=== PATIENT | female | born 1995 | race Caucasian/White ===

== ENCOUNTER 2025-04-04 10:11 | Emergency (ER) | payer OTHER, SELFPAY ==
[2025-04-04 10:16] VITALS: BP 103/64; PULSE 103; TEMP 36.9; O2SAT 95; BMI 55.8
--- OUTSIDE RECORDS SUMMARY | 2025-04-04 10:40 | XMS_ITS | Clinical Summary ---
Author Organization [facility] Address [address] [place] [address] Care Team Providers Care Nutritionist Name Role Phone Prashant Zimmerman DO Primary Care Provider Allergies Active AllergyReactionsCriticalityNoted DateCommentsChamomileHives,SwellingHigh 06/04/2023 Swelling of throat Iodinated Contrast MediaSwelling,Rash,PizulPkdh00/15/2015 Swelling of Lip/Tongue/Throat NouedaytbupebdpiYirmIxyh79/23/1131CsnfivwgtfnAlkaOjt24/01/2024Polyethylene Glycol (Macrogol)Swelling,GI hnvgkmnkxlcTssd61/13/2023 throat swelling Shellfish Protein-Containing Drug IyidofcwYycdaqjawizNnpg44/23/2014 Medications MedicationSigDispense QuantityRefillsLast FilledStart DateEnd DateStatus QUEtiapine (SEROquel) 50 MG tablet Active hydrOXYzine HCl (Atarax) 10 MG tablet Take 10 mg by mouth Daily as needed for anxiety.02/03/2023ctive cetirizine (ZyrTEC) 10 MG tablet 06/01/2023ctive fluticasone (Cutivate) 0.05 % cream APPLY CREAM TOPICALLY TO AFFECTED AREA TWICE DAILY04/07/2023ctive Ativan 1 MG tablet Take 1 mg by mouth04/17/2023ctive Naproxen Sodium (Aleve) 220 MG capsule Take 1 capsule as needed by oral route.Active paliperidone (Invega) 9 MG 24 hr tablet Take 9 mg by mouth at aqjblez7605/18/2023ctive sertraline (Zoloft) 50 MG tablet Take 50 mg by mouth Daily08/18/2023ctive busPIRone (Buspar) 10 MG tablet Take 10 mg by mouth in the morning and 10 mg before bedtime.08/18/2023ctive bacitracin 500 UNIT/GM ointment 10/08/2023ctive omeprazole (PriLOSEC) [address] capsule Daily09/21/2023ctive triamcinolone (Kenalog) 0.1 % ointment APPLY OINTMENT TOPICALLY TO AFFECTED AREA ONCE DAILY FOR 14 DAYS11/25/2023ctive triamcinolone (Kenalog) 0.1 % cream Indications:ScabiesApply to affected areas, up to twice a day when flared, do not use one the face, groin, or underarms, 30 day supply 454 g ctive Active Problems No known active problems Resolved Problems ProblemNoted DateDiagnosed DateResolved DateB12 brfxbgwadg37 Cervical muscle ugzsvi73ontusion Coordination of complex careEasy /10/2024 10/12/2023Iron deficiency burath38Mass of soft tissue of face Morbid obesity with BMI of 50.0-59.9, adult10/12/2023 10/12/2023Obesity (BMI 35.0-39.9 without comorbidity)arotid massecurrent major depressive Seizure-like mxjirloy22Severe major depression with psychotic mcsgypmg15DHD (attention deficit hyperactivity disorder) nxietyutoimmune gdhuqld7809/09/2023 09/09/2023ipolar 2 rqqasgwt55holelithiasis09/09/2023 09/09/20233482Ltpkgohxgv68hronic ukpouptufar61 Cevuqmjkhxba04History of suicide qgoiirh67 Overview (09/09/2023): history of suicide attempt at age 15 Hodgkin otpgdojy11S/P chemotherapy, time since 4-12 weeks S/P radiation > 12 weeksSensorineural hearing loss (SNHL) of both earsTonsillar hypertrophy MigraineSyncope Immunizations ImmunizationAdministration DatesNext DueInfluenza, injectable, quadrivalent 04/18/2016Influenza, seasonal, gcrljtljqi83/29/2018Meningococcal CCA1L2212/21/2015 Tdap09/01/2020 Family History Medical HistoryRelationNameCommentsCancerFatherRobert HemingwayDiabetesFather Syd HemingwayHeart diseaseFatherRobert HemingwayMelanomaFatherRobert HemingwayMental illnessFatherRobert HemingwayStrokeFatherRobert Radha DiabetesMaternal GrandfatherRobert WaltonHeart diseaseMaternal GrandfatherRobert WaltonStrokeMaternal GrandfatherRobert WaltonHeart diseaseMaternal Grandmother CancerMotherShirley HemingwayDiabetesMotherShirley HemingwayHeart diseaseMother Arabella HemingwayMental illnessMotherShirley HemingwayCancerPaternal Grandmother Conrad knappsiDiabetesPaternal GrandmotherJean lemanksiHeart diseasePaternal GrandmotherJean lemanksiMental illnessPaternal GrandmotherJean lemanksiStroke Paternal GrandmotherJean lemanksiMental illnessSiblingRelationNameStatusComments FatherRobert HemingwayAliveMaternal GrandfatherRobert WaltonDeceasedMaternal GrandmotherDeceasedMotherShirley HemingwayAlivePaternal GrandfatherAlivePaternal GrandmotherJean lemanksiDeceasedSiblingAliveSonAlive Social History Tobacco UseTypesPacks/DayYears UsedDateSmoking Tobacco: Some DaysCigarettes0.3 3.6Started: 4Passive Smoke Exposure: PastSmokeless Tobacco: Never Tobacco Cessation:Ready to Q uit: Not Asked Alcohol UseStandard Drinks/WeekCommentsNot Currently0 (1 standard drink = 0.6 oz pure alcohol)CommentsUnknownSex and Gender InformationValueDate Recorded Sex Assigned at BirthNot on fileLegal BlpQqjgnk80/15/2023 7:30 PM EDTGender IdentityNot on fileSexual OrientationNot on file Last Filed Vital Signs Vital SignReadingTime TakenCommentsBlood Nmwwdmvk458/77005/05/2023 11:56 AM EST Jwqvi7532/02/2024 11:56 AM ESTTemperature--Respiratory Rate--Oxygen Saturation-- Inhaled Oxygen Concentration--Uyoysf859 kg (279 lb)11/02/2023 1:19 PM EDTHeight 157.5 cm (5' 2 )11/02/2023 1:19 PM EDTBody Mass Index51.0307 1:19 PM EDT Plan of Treatment Not on file Insurance Care Teams Team MemberRelationshipSpecialtyStart DateEnd Date Prashant Zimmerman DO PCP - GeneralFamily Tusrlasm91/13/23
--- NOTE | 2025-04-04 10:42 | XR_ITS ---
The [address] [address] Patient Name: BRIGHT ZHOU MRN: [id number] date: 1995 Sex: F Assigned Patient Location: ED.MAIN Current Patient Location: ED.MAIN Accession/Order Number: [id number] Exam Date: 04/04/2025 10:35 Report Date: 04/04/2025 10:57 At the request of: MICHAELLE LOZANO MD Procedure: XR hand LT min 3V LEFT HAND - 3 views COMPARISON: None CLINICAL DATA: Patient jammed third finger on car seat a couple days ago and the same finger was also stepped on today. Pain and stiffness. AP, lateral and oblique views were obtained. There is minor irregularity/subtle lucency at the volar base of the middle phalanx of the third finger on the lateral view. This might be old, however focal clinical correlation is suggested to determine if this could be a nondisplaced fracture related to the recent injuries. There is no additional suspected acute fracture or dislocation. There is mild soft tissue swelling at the proximal second through fourth fingers, greatest at the third . XR/XR hand LT min 3V IMPRESSION: FOCAL CLINICAL CORRELATION IS SUGGESTED AT THE LEFT BASE OF THE MIDDLE PHALANX OF THE THIRD FINGER, DISCUSSED ABOVE. NO ADDITIONAL ACUTE FINDINGS. Impression dictated by: Iveth Dominguez M.D. 04/04/2025 10:57 AM Dictation Location: [place] [address] Electronically authenticated by: [id number] Y Date: 04/04/2025 10:57
--- NOTE | 2025-04-04 10:48 | ED.GENADUL1 ---
HPI HPI - General Adult General Chief complaint: Extremity Injury, Upper Stated complaint: LMF PAIN & SWELLING Time Seen by Provider: 04/04/25 10:30 Source: patient Mode of arrival: walk-in Limitations: no limitations History of Present Illness HPI narrative: 29-year-old female presents for pain to her left middle finger. She had hit it on a car seat a few days ago and complains of pain at the PIP. Other fingers are unaffected. She is right-handed. Related Data Home Medications ?Medication ?Instructions ?Recorded ?Confirmed buspirone 10 mg capsule 10 mg PO BID 04/04/25 04/04/25 omeprazole 20 mg capsule,delayed 20 mg PO DAILY 04/04/25 04/04/25 release paliperidone 6 mg tablet,extended 12 mg PO DAILY 04/04/25 04/04/25 release 24 hr (Invega) sertraline 25 mg tablet 25 mg PO DAILY 04/04/25 04/04/25 trazodone 100 mg tablet 50 mg PO DAILY 04/04/25 04/04/25 trospium 60 mg capsule,extended 60 mg PO DAILY 04/04/25 04/04/25 release 24 hr Previous Rx's ?Medication ?Instructions ?Recorded ibuprofen 800 mg tablet 800 mg PO Q8H PRN pain #20 tabs 04/04/25 Allergies Allergy/AdvReac Type Severity Reaction Status Date / Time Iodinated Contrast Media Allergy Severe hives Verified 04/04/25 10:24 polyethylene glycol 3350 AdvReac Intermediate Vomiting Verified 04/04/25 10:24 (From Miralax) Opioid HPI Opioid Management Most Recent Opioid Data: Last Pain Scale 7 Today, 10:16 Review of Systems ROS Narrative A ten point review of systems is negative except as noted above. PFSH PFSH Social History Little interest or pleasure in doing things: not at all Feeling down, depressed, or hopeless: not at all Exam Narrative Exam Narrative: Nurses note and vital signs reviewed General:The patient appears well and in no apparent distress.Patient is resting comfortably on cart. Skin:Warm, dry, no pallor noted.There is no rash noted. Head:Normocephalic, atraumatic Eye: Normal conjunctiva, no drainage Ears, Nose, Mouth, and Throat: oral mucosa is moist. Nares patent. Cardiovascular:Regular Rate and Rhythm Respiratory:Patient is in no distress, no accessory muscle use, lungs are clear to auscultation, no wheezing, rales or rhonchi GI: Soft and nontender Musculoskeletal: The left hand is examined. There is some tenderness and swelling at the left middle finger PIP. It has good range of motion. Other fingers are unaffected and have full range of motion and no tenderness. Neurological:A&O, normal speech Psychiatric:Cooperative Constitutional Vital Signs, click to edit/add: Last Vital Signs Temp 98.5 F 04/04/25 10:16 Pulse 103 H 04/04/25 10:16 Resp 20 04/04/25 10:16 BP 103/64 04/04/25 10:16 Pulse Ox 95 04/04/25 10:16 O2 Del Method Room Air 04/04/25 10:16 Course Vital Signs Vital signs: Vital Signs Temperature 98.5 F 04/04/25 10:16 Pulse Rate 103 H 04/04/25 10:16 Respiratory Rate 20 04/04/25 10:16 Blood Pressure 103/64 04/04/25 10:16 Pulse Oximetry 95 04/04/25 10:16 Oxygen Delivery Method Room Air 04/04/25 10:16 Temperature 98.5 F 04/04/25 10:16 Pulse Rate 103 H 04/04/25 10:16 Respiratory Rate 20 04/04/25 10:16 Blood Pressure 103/64 04/04/25 10:16 Pulse Oximetry 95 04/04/25 10:16 Oxygen Delivery Method Room Air 04/04/25 10:16 Medical Decision Making MDM Narrative Medical decision making narrative: X-ray of the finger per radiologist shows a questionable lucency. The patient does recall breaking her finger there when she was a child. This likely is an old finding. Splint applied, application checked by me and found to be appropriate, she is neurovascular intact. She was informed that this finding on the x-ray is most likely an old fracture but she will follow-up with orthopedics to ensure appropriate healing. Treatment diagnosis and follow-up were discussed with the patient. Differential Diagnosis Differential Diagnosis: Fracture, sprain Imaging Data Hand x-ray: Radiologist's impression: ITS Impressions Hand X-Ray 04/04/25 10:42 IMPRESSION: FOCAL CLINICAL CORRELATION IS SUGGESTED AT THE LEFT BASE OF THE MIDDLE PHALANX OF THE THIRD FINGER, DISCUSSED ABOVE. NO ADDITIONAL ACUTE FINDINGS. Impression dictated by: Iveth Dominguez M.D. 04/04/2025 10:57 AM Dictation Location: [place] [id number] Electronically authenticated by: [id number] Y Date: 04/04/2025 10:57 Discharge Plan Discharge Chief Complaint: Extremity Injury, Upper Clinical Impression: Finger pain Patient Disposition: Home, Self-Care Time of Disposition Decision: 11:08 Condition: Good Mode of Transportation: Private Vehicle Prescriptions / Home Meds: New ibuprofen 800 mg tablet 800 mg PO Q8H PRN (Reason: pain) Qty: 20 0RF No Action paliperidone [Invega] 6 mg tablet extended release 24hr 12 mg PO DAILY sertraline 25 mg tablet 25 mg PO DAILY trazodone 100 mg tablet 50 mg PO DAILY trospium 60 mg capsule,extended release 24hr 60 mg PO DAILY Rx Instructions: must be taken on empty stomach at least 1 hour before a meal/food with water only omeprazole 20 mg capsule,delayed release(DR/EC) 20 mg PO DAILY buspirone 10 mg capsule 10 mg PO BID Print Language: Armenian Instructions: Finger Sprain (ED) Referrals: Prashant Zimmerman DO [Primary Care Provider] - As needed Syd Hubbard MD [Physician, Orthopedics] - 1 week
[2025-04-04 11:24] VITALS: BP 123/78; PULSE 105; O2SAT 95
== END 2025-04-04 11:30 | disposition home or self-care (01) ==
PROVIDERS: Emergency Provider Emergency Medicine; PCP Family Medicine
DX: M79.645 Pain in left finger(s) (principal)
CPT/HCPCS: 29130; 73130; 99283

== ENCOUNTER 2025-04-07 13:15 | Emergency (ER) | payer OTHER, SELFPAY ==
[2025-04-07 13:19] VITALS: BP 141/85; PULSE 76; TEMP 36.7; O2SAT 95; BMI 55.8
[2025-04-07 13:30] VITALS: O2SAT 95
--- OUTSIDE RECORDS SUMMARY | 2025-04-07 13:43 | XMS_ITS | Clinical Summary ---
Author Organization [facility] Address [address] [place] [address] Care Team Providers Care Director Of Regional Sales Name Role Phone Prashant Zimmerman DO Primary Care Provider [phone] Allergies Active AllergyReactionsCriticalityNoted DateCommentsChamomileHives,SwellingHigh 06/04/2023 Swelling of throat Iodinated Contrast MediaSwelling,Rash,BmhqiSxyz41/15/2015 Swelling of Lip/Tongue/Throat WlnyfsrrmpbjmvruLmmgNsqq93/23/2660XvnbgmurgcfYqwnWrf21/01/2024Polyethylene Glycol (Macrogol)Swelling,GI lolmvjsulpbMnyl08/13/2023 throat swelling Shellfish Protein-Containing Drug MhklqvtoLnkbdjyprktVtzi67/23/2014 Medications MedicationSigDispense QuantityRefillsLast FilledStart DateEnd DateStatus QUEtiapine [...] tablet Take 9 mg by mouth at erwjbhc6105/18/2023ctive sertraline (Zoloft) 50 MG tablet Take 50 [...] problems Resolved Problems ProblemNoted DateDiagnosed DateResolved DateB12 hpblssohmj39 Cervical muscle nyearw66ontusion Coordination of complex careEasy yhofhhpn03/10/2024 10/12/2023Iron deficiency pebzss00Mass of soft tissue of face Morbid obesity with BMI of 50.0-59.9, adult10/12/2023 10/12/2023Obesity (BMI 35.0-39.9 without comorbidity)arotid massecurrent major depressive gvdgjalo65 Seizure-like ekjvehbp89Severe major depression with psychotic ugzfestx83DHD (attention deficit hyperactivity disorder) nxietyutoimmune iievlqs9109/09/2023 09/09/2023ipolar 2 uyrbhzqo24holelithiasis09/09/2023 09/09/20239602Uzvudybbjv64hronic lzqvaiplnio78 Ytytugxmifye68History of suicide ohlvccd47 Overview (09/09/2023): history of suicide attempt at age 15 Hodgkin ltviiqxl30S/P chemotherapy, time since 4-12 weeks S/P radiation > 12 weeksSensorineural hearing loss (SNHL) of both earsTonsillar hypertrophy MigraineSyncope Immunizations ImmunizationAdministration DatesNext DueInfluenza, injectable, quadrivalent 04/18/2016Influenza, seasonal, /29/2018Meningococcal EML1U7312/21/2015 Tdap09/01/2020 Family History Medical HistoryRelationNameCommentsCancerFatherRobert HemingwayDiabetesFather Syd [...] Recorded Sex Assigned at BirthNot on fileLegal YnoGcvdje28/15/2023 7:30 PM EDTGender IdentityNot on fileSexual OrientationNot on file Last Filed Vital Signs Vital SignReadingTime TakenCommentsBlood Slhxrhka625/77005/05/2023 11:56 AM EST Bpafr7336/02/2024 11:56 AM ESTTemperature--Respiratory Rate--Oxygen Saturation-- Inhaled Oxygen Concentration--Cktccw247 kg (279 lb)11/02/2023 1:19 PM EDTHeight 157.5 cm (5' 2 )11/02/2023 1:19 PM EDTBody Mass Index51.0307 1:19 PM EDT Plan of Treatment Not on file Insurance Care Teams Team MemberRelationshipSpecialtyStart DateEnd Date Prashant Zimmerman DO PCP - GeneralFamily Pftxsrwf60/13/23
--- NOTE | 2025-04-07 13:49 | XR_ITS ---
[place] [id number] Patient Name: BRIGHT ZHOU MRN: [id number] date: 1995 Sex: F Assigned Patient Location: ER Current Patient Location: ER Accession/Order Number: [id number] Exam Date: 04/07/2025 13:53 Report Date: 04/07/2025 14:11 At the request of: CHANDAN ROBERTS Procedure: XR chest 1V XR chest 1V 04/07/2025 1:57 PM SIGNS AND SYMPTOMS: ^Cough, rhonchi PROTOCOL: Frontal radiograph of the chest COMPARISON: None FINDINGS: The trachea is midline. The heart and mediastinal structures are within normal limits. The lung parenchyma is clear. The bony thorax is intact. XR/XR chest 1V IMPRESSION: No acute cardiopulmonary pathology. Impression dictated by: Ko Danielson M.D. 04/07/2025 2:11 PM Dictation Location: [place] [address] Electronically authenticated by: [id number] Y Date: 04/07/2025 14:11
--- NOTE | 2025-04-07 13:54 | ED_ITS ---
HPI HPI - General Adult General Chief complaint: Upper Respiratory Infection Stated complaint: URTI COMPLAINTS Time Seen by Provider: 04/07/25 13:32 Source: patient Mode of arrival: walk-in History of Present Illness HPI narrative: Patient is a 29-year-old female that presents to the emergency department with complaints of 4 days of cough, nausea, vomiting, headache, diarrhea, and fever. She states she had a fever today of 101 when she woke up. She states that her immune system is not very good because she has had Hodgkin's lymphoma previously. She did see her PCP office this morning and saw an [employer] who pre scribed her Augmentin for a right ear infection and Zofran for nausea. She is having a lot of upper back pain when she coughs. Related Data Home Medications ?Medication ?Instructions ?Recorded ?Confirmed buspirone 10 mg capsule 10 mg PO BID 04/04/25 omeprazole 20 mg capsule,delayed 20 mg PO DAILY 04/07/25 release paliperidone 6 mg tablet,extended 12 mg PO DAILY 04/0404/07/25 release 24 hr (Invega) sertraline 25 mg tablet 25 mg PO DAILY 04/04/2509/25 trazodone 100 mg tablet 50 mg PO DAILY 04/04/2509/25 trospium 60 mg capsule,extended 60 mg PO DAILY 5 04/07/25 release 24 hr amoxicillin 875 mg-potassium 1 tab PO Q12H 04/07/25 clavulanate 125 mg tablet ondansetron 4 mg disintegrating mg 04/07/25 tablet Previous Rx's ?Medication ?Instructions ?Recorded ibuprofen 800 mg tablet 800 mg PO Q8H PRN pain #20 t abs 04/04/25 benzonatate 100 mg capsule 100 mg PO Q6H PRN cough #20 caps 04/07/25 ibuprofen 600 mg tablet 600 mg PO Q6H PRN fever or p ain 04/07/25 #20 tabs Allergies Allergy/AdvReac Type Severity Reaction Status Date / Time Iodinated Contrast Media Allergy Severe hives Verified 04/07/25 13:34 polyethylene glycol 3350 AdvReac Intermediate Vomiting Verified 04/07/25 13:34 (From Miralax) Opioid HPI Opioid Management Most Recent Opioid Data: Last Pain Scale 8 Today, 15:03 Last ED Pain Assessment 04/04/25, 10:20 Last MAR Pain Assessment Today, 15:03 Review of Systems ROS Status of ROS 10 or more systems reviewed and unremark able except as noted in history and below PFSH PFSH Social History Little interest or pleasure in doing things: not at all Feeling down, depressed, or hopeless: not at all Exam Narrative Exam Narrative: General: No distress, age-appropriate Skin: Warm, dry, no pallor. No rash. Head: Normocephalic, atraumatic. Neck: Supple, non-tender. Eye: Pupils are equal, round and EOMI. No scleral icterus. Ears, Nose, Mouth, and Throat: No nasal mucosal hypertrophy. Oral mucosa is moist, no posterior oropharynx erythema, uvula is mid-line. TMs clear bilaterally, mild erythema noted bilateral ear canals Cardiovascular: Regular Rate and Rhythm without murmur, gallop or rub. Respiratory: No accessory muscle use or respiratory distress. Lungs are clear to auscultation, no wheezing or rales, mild rhonchi heard throughout all lung alejo Chest Wall: no tenderness Back: No midline thoracic or lumbar vertebral tenderness. Musculoskeletal: Full ROM of all extremities, no calf or popliteal tenderness GI: Abdomen is soft, non-distended, non tender to palpation. No masses appreciated. No rebound, guarding, or rigidity noted. Neurological: A&O x4. No cranial nerve dysfunction observed. No truncal ataxia. Moves all extremities. Sensation intact. Psychiatric: Cooperative and interactive. Normal mood and affect. Constitutional Vital Signs, click to edit/add: Last Vital Signs Temp 98.2 F 04/07/25 15:10 Pulse 75 04/07/25 15:10 Resp 18 04/07/25 15:10 BP 125/88 04/07/25 15:10 Pulse Ox 96 04/07/25 15:10 O2 Del Method Room Air 04/07/25 15:10 Documenting provider has reviewed patient's vital signs: yes Course Vital Signs Vital signs: Vital Signs Temperature 98.1 F 04/07/25 13:19 Pulse Rate 76 04/07/25 13:19 Respiratory Rate 20 04/07/25 13:19 Blood Pressure 141/85 04/07/25 13:19 Pulse Oximetry 95 04/07/25 13:19 Oxygen Delivery Method Room Air 04/07/25 13:19 Temperature 98.2 F 04/07/25 15:10 Pulse Rate 75 04/07/25 15:10 Respiratory Rate 18 04/07/25 15:10 Blood Pressure 125/88 04/07/25 15:10 Pulse Oximetry 96 04/07/25 15:10 Oxygen Delivery Method Room Air 04/07/25 15:10 Medical Decision Making MDM Narrative Medical decision making narrative: This is a 29-year-old female that presents with complaints of bad cough and upper back pain with cough for about 4 days. She has been febrile at home with nausea, vomiting, diarrhea, and right ear pain. On arrival patient is nontoxic-appearing, vitals are hemodynamically stable, no tachycardia HR 76, afebrile 98.1, 95% O2 saturation on room air. CXR, influenza A/B, COVID?19 ordered. Chest x-ray reviewed by myself and agree with radiological read of no acute cardiopulmonary pathology. Negative COVID?19, influenza A/B. Toradol 30 mg IM given for back pain present with coughing. She remains nontoxic-appearing with stable vital signs, normal oxygen saturation, and no respiratory distress. Lung exam shows mild rhonchi but chest X-ray is negative for infiltrate, consolidation, or effusion, making pneumonia unlikely. Symptoms and exam are most consistent with a viral respiratory illness with associated musculoskeletal chest and upper back pain likely due to costochondritis from persistent coughing. Given her history of Hodgkin?s lymphoma, a broader evaluation was considered; however, she demonstrates no signs of systemic infection, dehydration, or immunocompromised decompensation. She received Toradol 30 mg IM in the ED with symptom improvement. Augmentin prescribed by PCP for right otitis media was reviewed, and no indication for additional antibiotics was found. Patient is safe for discharge with Tessalon Perles for cough suppression and ibuprofen 600 mg for costochondritis. Strict return precautions reviewed, and patient verbalized understanding. Differential Diagnosis Differential Diagnosis: Viral URI, bacterial PNA, costochondritis,COVID-19, Influenza Lab Data Lab results reviewed: Yes I reviewed the patient's lab results Labs: Lab Results 04/07/25 Range/Units 13:56 Influenza Type A Ag Negative Influenza Type B Ag Negative SARS-CoV-2 Ag (CV2AG) Negative (NEGATIVE) Imaging Data Chest x-ray: Attestation: I have reviewed the pertinent imaging results. Radiologist's impression: ITS Impressions Chest X-Ray 04/07/25 13:49 IMPRESSION: No acute cardiopulmonary pathology. Impression dictated by: Ko Danielson M.D. 04/07/2025 2:11 PM Dictation Location: [place] [address] Electronically authenticated by: [id number] Y Date: 04/07/2025 14:11 Discharge Plan Discharge Chief Complaint: Upper Respiratory Infection Clinical Impression: Upper respiratory infection, viral, Costochondritis Patient Disposition: Home, Self-Care Time of Disposition Decision: 14:28 Condition: Good Mode of Transportation: Private Vehicle Prescriptions / Home Meds: New benzonatate 100 mg capsule 100 mg PO Q6H PRN (Reason: cough) Qty: 20 0RF ibuprofen 600 mg tablet 600 mg PO Q6H PRN (Reason: fever or pain) Qty: 20 0RF No Action paliperidone [Invega] 6 mg tablet extended release 24hr 12 mg PO DAILY sertraline 25 mg tablet 25 mg PO DAILY trazodone 100 mg tablet 50 mg PO DAILY trospium 60 mg capsule,extended release 24hr 60 mg PO DAILY Rx Instructions: must be taken on empty stomach at least 1 hour before a meal/food with water only omeprazole 20 mg capsule,delayed release(DR/EC) 20 mg PO DAILY buspirone 10 mg capsule 10 mg PO BID ibuprofen 800 mg tablet 800 mg PO Q8H PRN (Reason: pain) Qty: 20 0RF amoxicillin-pot clavulanate 875-125 mg tablet 1 tab PO Q12H ondansetron 4 mg tablet,disintegrating Print Language: Japanese Instructions: Costochondritis (ED), Upper Respiratory Infection (ED) Additional Instructions: Medications: * Ibuprofen 600 mg every 6 hours as needed for pain. Take with food. Do not take with other NSAIDs (Motrin, Advil, Aleve). * Tessalon Perles (benzonatate) as prescribed for cough. Do not chew or crush; swallow whole. * Continue Augmentin as previously prescribed by your PCP for your ear infection unless told otherwise. * You may continue Zofran for nausea as needed. Care Instructions: * Rest, increase fluids, and use a humidifier if available. * Your chest and upper back pain are likely from inflammation of the chest wall due to frequent coughing. This may take several days to improve. * Warm packs or heating pads may help with chest wall discomfort. * If you develop worsening nausea or diarrhea, hold Augmentin and contact your PCP for guidance. What to Expect: * Cough, fatigue, and chest wall soreness can last several days to a week. * Fever may come and go for the next 24?48 hours. Return to the ER Immediately If You Develop: * Trouble breathing or worsening shortness of breath * Chest pain not related to coughing or pain that becomes severe * Fever higher than 103?F or fever lasting more than 3 days * Vomiting that prevents you from keeping fluids down * Signs of dehydration (dark urine, dizziness, dry mouth) * Worsening weakness, confusion, or feeling faint * Any new or concerning symptoms Follow-Up: * Follow up with your primary care provider for re-evaluation. * If your symptoms suddenly worsen before then, return to the ER. Referrals: Prashant Zimmerman DO [Primary Care Provider] - 1 week Discharge Date/Time: 04/07/25 15:12
[2025-04-07 14:21] LABS: SARS-CoV-2 Ag NEGATIVE (NEGATIVE)
[2025-04-07] MEDS: KETOROLAC TROMETHAMINE 30 MG/ML VIAL IM (15:03)
[2025-04-07 15:10] VITALS: BP 125/88; PULSE 75; TEMP 36.8; O2SAT 96
== END 2025-04-07 15:12 | disposition home or self-care (01) ==
PROVIDERS: Physician Assistant; Emergency Provider Emergency Medicine; PCP Family Medicine
DX: M94.0 Chondrocostal junction syndrome [Tietze] (principal); J06.9 Acute upper respiratory infection, unspecified; B97.89 Other viral agents as the cause of diseases classified elsewhere; Z85.71 Personal history of Hodgkin lymphoma
CPT/HCPCS: 71045; 87804; 87811; 96372; 99283; 99285; J1885